=== PATIENT | male | born 1950 | race Caucasian/White ===

== ENCOUNTER 2021-10-29 06:35 | Observation (INO) | payer MEDICARE ==
[~2021-10-29] VITALS: Ht 182.9 cm; Wt 112.0 kg
[2021-10-29 07:53] LABS: HEMOGLOBIN 18.5 gm/dl (14.0-17.5); RED BLOOD COUNT 5.94 M/UL (4.20-5.50); WHITE BLOOD COUNT 10.2 K/UL (4.5-11.0)
[2021-10-29 08:16] LABS: BUN/CREATININE RATIO 18 (0-10)
[2021-10-29] MEDS ORDERED: PRAVASTATIN SOD80 MG PO (10:48)
[2021-10-29] MEDS ORDERED: CLOPIDOGREL75 MG PO (10:48)
[2021-10-29] MEDS ORDERED: METOPROLOL TART25 MG PO (10:48)
[2021-10-29] MEDS ORDERED: LISINOPRIL10 MG PO (10:49)
[2021-10-29] MEDS ORDERED: CHLORTHALIDONE25 MG PO (10:49)
[2021-10-29] MEDS ORDERED: PRILOSEC OTC20 MG PO (10:49)
[2021-10-29] MEDS ORDERED: ASPIRIN EC81 MG PO (10:49)
== END 2021-10-29 13:03 | disposition left against medical advice (07) ==
LOC: ER1 06:35 → CDU 08:56
PROVIDERS: Physician Assistant; ADMIT Internal Medicine
DX: R07.89 Other chest pain (principal); K21.9 Gastro-esophageal reflux disease without esophagitis; I10 Essential (primary) hypertension; I25.10 Atherosclerotic heart disease of native coronary artery without angina pectoris; E78.5 Hyperlipidemia, unspecified; F17.210 Nicotine dependence, cigarettes, uncomplicated; I25.2 Old myocardial infarction; Z95.5 Presence of coronary angioplasty implant and graft
CPT/HCPCS: 71045; 80053; 82550; 82553; 83880; 84484; 85025; 93005; 99285; G0378